=== PATIENT | male | born 1985 | race Caucasian/White ===

== ENCOUNTER 2019-01-28 07:41 | Day surgery (SDC) | payer OTHER ==
[2019-01-28] MEDS ORDERED: LACTATED RINGERS 1,000 ML IV ONE ×2 (07:48→09:51)
[2019-01-28] MEDS ORDERED: CEFAZOLIN SODIUM IN 0.9 % NACL 2 GM/100 ML BAG IV ONE (07:53)
--- NOTE | 2019-01-28 08:34 | ANESTHESIA ---
Pre-Anesthesia VS, & Labs - Diagnosis right acl and meniscus tear - Procedure right ant cruciate ligament repair, meniscal repair Vital Signs: Temp Pulse Resp BP Pulse Ox 36.4 C L 67 18 141/98 H 100 01/28/19 07:59 01/28/19 07:59 01/28/19 07:59 01/28/19 07:59 01/28/19 07:59 Height 6 ft 0.83 in Weight (kg) 97 kg - NPO >8 hours Home Medications and Allergies Home Medications: Ambulatory Orders Acetaminophen [Tylenol] 650 mg PO Q6H PRN 01/18/19 Multivitamin [One Daily Multivitamin] 1 each PO DAILY 01/18/19 Acetaminophen [Tylenol] 650 mg PO Q6H PRN 01/18/19 Multivitamin [One Daily Multivitamin] 1 each PO DAILY 01/18/19 Allergies/Adverse Reactions: Allergies Allergy/AdvReac Type Severity Reaction Status Date / Time No Known Drug Allergies Allergy Verified 01/18/19 10:36 Anes History & Medical History - Anesthetic History Anesthesia Complications: reports: No previous complications Family history of Anesthesia Complications: Denies Family history of Malignant Hyperthermia: Denies - Medical History Cardiovascular: reports: None Pulmonary: reports: None Gastrointestinal: reports: None Urinary: reports: None Musculoskeletal: reports: Other Endocrine/Autoimmune: reports: None Skin: reports: None - Surgical History Eyes Ears Nose Throat (EENT): Other Exam General: Alert, Oriented x3, Cooperative, No acute distress Dental: Other (crowns) Mouth Openin Fingerbreadth Neck Mobility: Normal Mallampati classification: I Thyromental Distance: greater than 6 cm Respiratory: Lungs clear, Normal breath sounds, No respiratory distress, No accessory muscle use Cardiovascular: Regular rate, Normal S1, Normal S2, No murmurs Plan Anesthesia Type: General Consent for Procedure(s) Verified and Reviewed: Yes Code Status: Attempt Resuscitation ASA classification: 1-Healthy patient Is this case an emergency?: No
[2019-01-28] MEDS ORDERED: LIDOCAINE-MPF 2% 5 ML VIAL IM ONE (09:00)
[2019-01-28] MEDS ORDERED: fentaNYL 100 MCG/2 ML VIAL IVP ONE (09:00)
[2019-01-28] MEDS ORDERED: MIDAZOLAM 2 MG/2 ML VIAL IVP ONE (09:00)
[2019-01-28] MEDS ORDERED: PROPOFOL 200 MG/20 ML VIAL IVP ONE (09:00)
[2019-01-28 09:53] VITALS: BP 133/94
--- NOTE | 2019-01-28 10:28 | OPERATIVE REPORT ---
Operative Report - Other Other Information/Narrative: Date of Surgery: 28 January 2019 Pre-Op Diagnosis: Right anterior cruciate ligament tear Right medial meniscus tear Right lateral meniscus tear Possible right posterior lateral corner injury Procedure: Examination under anesthesia Postop Diagnosis: Right anterior cruciate ligament tear Right medial meniscus tear Right lateral meniscus tear Right posterior lateral corner injury Primary Surgeon: Kurt Cruz Secondary Surgeon: Jaya Peñaloza Complications: None Tourniquet Time: None EBL: None Implants: None Postoperative Protocol: Continue preoperative rehabilitation with quad strengthening and range of motion improvement. Indication For Surgery: 33-year-old male injured his knee when he jumped off of a 3 foot tall piece of playground equipment. He reports numbness of the leg for a couple days afterwards that resolved. 6 weeks later he ended up getting an MRI showing ACL tear, partial LCL tear, popliteus tendon injury, medial meniscus injury, and lateral meniscus injury. He underwent adequate rehabilitation to restore range of motion and quadricep strength prior to surgery. The surgical plan was to perform an examination under anesthesia and determine whether the posterolateral corner required reconstruction or not. If the posterior lateral corner did not require reconstruction then the ACL reconstruction will be performed today with meniscus treatment as indicated. If the posterior lateral corner required reconstruction the patient would be awakened and care would be arranged by an orthopedic sports surgeon. The risks, benefits, and alternatives were discussed. Risks include pain, bleeding, infection, damage to nearby s tructures, numbness, lack of symptom relief, implant complications, nonunion, need for further surgery, DVT, PE, stroke, and . Written consent was obtained. Procedure in Detail: The patient was met in the pre-operative hold area on the day of the procedure. The operative extremity was signed and questions were answered. The patient was brought to the operating room and a general anestheti c was administered. Supine position was used and all bony prominences were padded. Anesthesia was given until the patient was nonresponsive. With assistance I then performed an examination under anesthesia. Range of motion was full. ACL showed a 2B Janine, and a grossly positive pivot shift. The knee was stable to valgus stressing at 0 and 30 degrees. Dial testing at 30 degrees revealed 30 degrees increased external rotation of the right knee when compared to the left knee. Dial testing at 90 degrees of knee flexion revealed 15 degrees increased external rotation of the right knee when compared to the left knee. When externally rotating the tibia the posterior lateral portion of the tibia moved further posterior in the anteromedial portion did did not move further anterior. Fluoroscopy was brought in and varus stress x-rays of the knees were done at 0 and 30 degrees. The right knee gapped a couple millimeters more than the left knee on varus stress testing with the knee bent to 30 degrees. Based on this information I believe a posterior lateral corner reconstruction should be performed. The patient was therefore awakened and transferred to recovery. I will arrange further treatment with an orthopedic sports surgeon.
--- NOTE | 2019-01-28 11:25 | XRAY Report ---
Reason: RIGHT KNEE MANIPULATION WITH LEFT KNEE COMPARISON Procedure Date: 01/28/2019 Accession Number: [id number] / [id number] Procedure: XR - Knee 2 View BILAT CPT Code: FULL RESULT: EXAM: FLUOROSCOPIC GUIDANCE EXAM DATE: 01/28/2019 10:04 AM. CLINICAL HISTORY: Right knee manipulation with left knee comparison. COMPARISON: OR C-ARM PROCEDURE 01/28/2019 9:32 AM. FINDINGS: A total of 9 AP view images of the knee joint are submitted, 2 of which are off the left side, no significant findings. IMPRESSION: Fluoroscopic guidance provided for right knee manipulation under fluoroscopy. Total fluoroscopy time: 0 seconds with a dose area product of 57.18 mcGym2. Number of images: 9. RADIA
--- NOTE | 2019-01-28 11:25 | XRAY Report ---
Reason: RIGHT KNEE MANIPULATION Procedure Date: 01/28/2019 Accession Number: [id number] / [id number] Procedure: FL - OR C-Arm Procedure CPT Code: FULL RESULT: EXAM: FLUOROSCOPIC GUIDANCE EXAM DATE: 01/28/2019 10:04 AM. CLINICAL HISTORY: Right knee manipulation with left knee comparison. COMPARISON: OR C-ARM PROCEDURE 01/28/2019 9:32 AM. FINDINGS: A total of 9 AP view images of the knee joint are submitted, 2 of which are off the left side, no significant findings. IMPRESSION: Fluoroscopic guidance provided for right knee manipulation under fluoroscopy. Total fluoroscopy time: 0 seconds with a dose area product of 57.18 mcGym2. Number of images: 9. RADIA
== END 2019-01-28 07:42 | disposition home or self-care (01) ==
LOC: SDS 07:41
PROVIDERS: ATTEND Orthopaedic Surgery
PROC: 0SSCXZZ Reposition Right Knee Joint, External Approach (ICD-10-PCS; principal; 2019-01-28 08:45)
DX: S83.511A Sprain of anterior cruciate ligament of right knee, initial encounter (principal); S83.241A Other tear of medial meniscus, current injury, right knee, initial encounter; S83.281A Other tear of lateral meniscus, current injury, right knee, initial encounter; S89.81XA Other specified injuries of right lower leg, initial encounter; Z87.891 Personal history of nicotine dependence
CPT/HCPCS: 27570; 73565; J7120

== ENCOUNTER 2019-03-17 08:17 | Emergency (ER) | payer OTHER ==
[2019-03-17 08:38] VITALS: BP 144/92
[2019-03-17] MEDS ORDERED: DEXAMETHASONE 10 MG/ML VIAL PO STA (09:05)
[2019-03-17] MEDS ORDERED: CHERRY SYRUP 10 ML UDC PO ONE (09:05)
[2019-03-17] MEDS ORDERED: ACETAMINOPHEN 325 MG TABLET PO STA (09:05)
--- NOTE | 2019-03-17 09:35 | ED Physician Documentation ---
PD HPI LOWER EXT INJURY - Stated complaint Stated Complaint: L FOOT PX - Chief complaint Chief Complaint: Ext Problem - History obtained from History obtained from: Patient - History of Present Illness PD HPI LOW EXT INJURY LOCATION: Left, Foot Type of injury: Twist Timing - onset: Today Timing - details: Abrupt onset, Still present Worsened by: Moving, Palpating Associated symptoms: Swelling. No: Weakness, Numbness Similar symptoms before: Has not had sx before Review of Systems Skin: denies: Abrasion (s), Laceration (s) Neurologic: denies: Numbness PD PAST MEDICAL HISTORY - Past Medical History Cardiovascular: None Respiratory: None Endocrine/Autoimmune: None GI: None : None HEENT: None Psych: None Musculoskeletal: Other Derm: None - Past Surgical History Ortho: Other HEENT: Other - Present Medications Home Medications: Ambulatory Orders Medication Instructions Recorded Confirmed Acetaminophen [Tylenol] 650 mg PO Q6H PRN 01/18/19 01/28/19 Multivitamin [One Daily 1 each PO DAILY 01/18/19 01/28/19 Multivitamin] Hydrocodone/Acetaminophen [[place] 1 each PO Q6H PRN #20 tablet 03/17/19 5-325 Tablet] dexAMETHasone [Decadron] 4 mg PO DAILY #5 tablet 03/17/19 - Allergies Allergies/Adverse Reactions: Allergies Allergy/AdvReac Type Severity Reaction Status Date / Time No Known Drug Allergies Allergy Verified 03/17/19 08:38 - Social History Does the pt smoke?: No Smoking Status: Never smoker PD ED PE NORMAL - Vitals Vital signs reviewed: Yes - General General: Alert and oriented X 3, No acute distress, Well developed/nourished - Derm Derm: Normal color, Warm and dry - Extremities Extremities: Other (left foot with mid proximal foot tenderness and swelling. Normal sensation in toes. Normal pulses. No calf tenderness. ) - Neuro Neuro: Alert and oriented X 3, No motor deficit, No sensory deficit Results - Vitals Vitals: Oxygen O2 Source Room air - Rads (name of study) left foot Radiology: Prelim report reviewed (no fractures), See rad report PD MEDICAL DECISION MAKING - ED course Complexity details: reviewed results, considered differential, d/w patient Departure - Departure Disposition: 01 Home, Self Care Clinical Impression: Sprain of left foot Qualifiers: Encounter type: initial encounter Qualified Code(s): S93.602A - Unspecified sprain of left foot, initial encounter Condition: Stable Record reviewed to determine appropriate education?: Yes Instructions: ED Sprain Foot Follow-Up: FUENTES JARAMILLO MD [Primary Care Provider] - Prescriptions: dexAMETHasone [Decadron] 4 mg PO DAILY #5 tablet Hydrocodone/Acetaminophen [[place] 5-325 Tablet] 1 each PO Q6H PRN #20 tablet PRN Reason: Pain Comments: Your x-ray appears normal. Presume this is some ligament and muscles strain through the foot. Given the marked pain along with some redness, also consider an inflammatory reaction such as gout. The common treatment for these is anti-inflammatories. Continue your new naproxen 2-3 times a day. To that add Decadron steroid anti-inflammatory. Supplement with Tylenol or hydrocodone as needed for pain. Try the firm soled shoe and see if that dissipates the pressure in such a way that it does not hurt as much to walk on it. Follow-up with Ortho next week. Discharge Date/Time: 03/17/19 09:48
--- NOTE | 2019-03-17 09:37 | XRAY Report ---
Reason: foot pain past few days Procedure Date: 03/17/2019 Accession Number: [id number] / [id number] Procedure: XR - Foot 3 View LT CPT Code: FULL RESULT: EXAM: LEFT FOOT RADIOGRAPHY EXAM DATE: 03/17/2019 09:22 AM. CLINICAL HISTORY: Foot pain past few days. COMPARISON: None. TECHNIQUE: 3 views. FINDINGS: Bones: No fractures or bone lesions. Joints: Unremarkable. Soft Tissues: Unremarkable. IMPRESSION: 1. No acute osseous abnormality. RADIA
== END 2019-03-17 09:48 | disposition home or self-care (01) ==
LOC: ED 08:17
DX: S93.602A Unspecified sprain of left foot, initial encounter (principal); X50.1XXA Overexertion from prolonged static or awkward postures, initial encounter
CPT/HCPCS: 73630; 99283; A9270

== ENCOUNTER 2019-09-04 11:29 | Emergency (ER) | payer OTHER ==
[2019-09-04] MEDS ORDERED: KETOROLAC 60 MG/2 ML VIAL IM STA (14:51)
[2019-09-04] MEDS ORDERED: DEXAMETHASONE 10 MG/ML VIAL PO STA (14:51)
[2019-09-04] MEDS ORDERED: CHERRY SYRUP 10 ML UDC PO ONE (14:51)
--- NOTE | 2019-09-04 14:55 | ED Physician Documentation ---
PD HPI BACK PAIN - Stated complaint Stated Complaint: LOW BACK PX - Chief complaint Chief Complaint: Back Pain - History obtained from History obtained from: Patient - History of Present Illness Timing - onset: How many days ago (3) Timing - duration: Days (3) Timing - details: Abrupt onset, Still present Location: Lower, Right Quality: Pain, Spasm, Sharp, Similar to prior episodes Associated symptoms: No: Fever, Weakness, Numbness, Incontinent of urine, Unable to urinate, Hematuria, Incontinent of stool Improves with: Rest, Ice, Position Worsened by: Movement, Lifting, Twisting Contributing factors: Other (Weightlifting) Similar symptoms before: Diagnosis (Lumbar strain) Recently seen: Not recently seen - Additional information Additional information: 34-year-old male with a chronic low back injury was doing his workout at the gym 3 days ago when he felt that he strained his lower back. He has since had pain in the lower back or usually has this. It is not radiating down into his legs. He is not having any saddle anesthesia or change in his bowel or bladder. Review of Systems Constitutional: denies: Fever Eyes: denies: Decreased vision Ears: denies: Ear pain Nose: denies: Congestion Respiratory: denies: Cough GI: denies: Nausea, Vomiting : denies: Dysuria PD PAST MEDICAL HISTORY - Past Medical History Cardiovascular: None Respiratory: None Endocrine/Autoimmune: None GI: None : None HEENT: None Psych: None Musculoskeletal: Other Derm: None - Past Surgical History Past Surgical History: Yes Ortho: Other HEENT: Other - Present Medications Home Medications: Ambulatory Orders Medication Instructions Recorded Confirmed Acetaminophen [Tylenol] 650 mg PO Q6H PRN 01/18/19 01/28/19 Multivitamin [One Daily 1 each PO DAILY 01/18/19 01/28/19 Multivitamin] Hydrocodone/Acetaminophen [[place] 1 each PO Q6H PRN #20 tablet 03/17/19 5-325 Tablet] dexAMETHasone [Decadron] 4 mg PO DAILY #5 tablet 03/17/19 Cyclobenzaprine [Flexeril] 10 mg PO TID PRN #20 tablet 09/04/19 Hydrocodone/Acetaminophen 1 - 2 each PO Q6H PRN #14 tablet 09/04/19 [Hydrocodon-Acetaminophen 5-325] - Allergies Allergies/Adverse Reactions: Allergies Allergy/AdvReac Type Severity Reaction Status Date / Time No Known Drug Allergies Allergy Verified 09/04/19 12:16 - Social History Does the pt smoke?: No Smoking Status: Never smoker Does the pt drink ETOH?: Yes Does the pt have substance abuse?: No PD ED PE NORMAL - Vitals Vital signs reviewed: Yes (Hypertensive) - General General: No acute distress, Well developed/nourished, Other (Patient looks uncomfortable sitting in a cockeyed position.) - HEENT HEENT: Atraumatic, PERRL, EOMI - Neck Neck: Supple, no meningeal sign - Respiratory Respiratory: No respiratory distress - Back Back: No CVA TTP, No spinal TTP, Other (There is tenderness to the paraspinous muscles in the lower lumbar spine on the right side near the sciatic notch.) - Derm Derm: Normal color, Warm and dry, No rash - Extremities Extremities: No deformity, No edema - Neuro Neuro: Alert and oriented X 3, foxer 2-12 intact, No motor deficit, No sensory deficit, Normal speech Eye Opening: Spontaneous Motor: Obeys Commands Verbal: Oriented GCS Score: 15 - Psych Psych: Normal mood, Normal affect Results - Vitals Vitals: Vital Signs - 24 hr 09/04/19 09/04/19 12:16 14:59 Temperature 36.5 C Heart Rate 86 71 Respiratory 14 18 Rate Blood Pressure 134/100 H 134/86 H O2 Saturation 100 99 Oxygen O2 Source Room air PD MEDICAL DECISION MAKING - ED course Complexity details: reviewed results, re-evaluated patient, considered differential, d/w patient ED course: 34-year-old male with strained himself weightlifting has pain in his right lower back similar to what is had previously. He is administered dexamethasone 10 mg orally and 60 mg of Toradol IM. We will place him on a short course of pain medication and muscle relaxant. Departure - Departure Disposition: 01 Home, Self Care Clinical Impression: Low back sprain Qualifiers: Encounter type: initial encounter Qualified Code(s): S33.5XXA - Sprain of ligaments of lumbar spine, initial encounter Condition: Stable Instructions: ED Low Back Pain Injury Follow-Up: [facility] [Provider Group] Prescriptions: Cyclobenzaprine [Flexeril] 10 mg PO TID PRN #20 tablet PRN Reason: Spasms Hydrocodone/Acetaminophen [Hydrocodon-Acetaminophen 5-325] 1 - 2 each PO Q6H PRN #14 tablet PRN Reason: pain
[2019-09-04 14:59] VITALS: BP 134/86
== END 2019-09-04 15:33 | disposition home or self-care (01) ==
LOC: ED 11:29
DX: S33.5XXA Sprain of ligaments of lumbar spine, initial encounter (principal); X50.0XXA Overexertion from strenuous movement or load, initial encounter; Y93.B9 Activity, other involving muscle strengthening exercises; Y92.39 Other specified sports and athletic area as the place of occurrence of the external cause
CPT/HCPCS: 96372; 99283; 99284; A9270

== ENCOUNTER 2020-03-17 11:39 | Emergency (ER) | payer OTHER ==
--- NOTE | 2020-03-17 12:16 | ED Physician Documentation ---
PD HPI BACK PAIN - Stated complaint Stated Complaint: BACK PAIN - Chief complaint Chief Complaint: Back Pain - History obtained from History obtained from: Patient - History of Present Illness Timing - onset: Yesterday Timing - details: Abrupt onset, Still present Location: Lower, Right Quality: Pain, Spasm, Aching Associated symptoms: Other (no radiation of the pain to legs.). No: Fever, Weakness, Numbness, Incontinent of urine Improves with: Rest. No: Meds (tried Ibuprofen with mild improvement) Worsened by: Movement Contributing factors: Lifting (he says his child tipped over the grill onto himself, so patient ran quickly to him and lifted the grill off him and them picked him up to hug him. Child was not injured by the incident. Patient felt onset of pain, and has increased pain and stiffness today. No radiation of pain nor any neuro sxs.) Similar symptoms before: Diagnosis (lumbar strain and some herniated discs, treated with PT and meds several years ago. Occasional LBP with activity since. No recent complaints and was doing well with regular exercises.) Recently seen: No: Surgery Review of Systems Constitutional: denies: Fever, Chills Nose: denies: Rhinorrhea / runny nose, Congestion Throat: denies: Sore throat Cardiac: denies: Chest pain / pressure Respiratory: denies: Cough GI: denies: Abdominal Pain, Nausea, Vomiting : denies: Incontinent Neurologic: denies: Focal weakness, Numbness PD PAST MEDICAL HISTORY - Past Medical History Cardiovascular: None Respiratory: None Endocrine/Autoimmune: None GI: None : None HEENT: None Psych: None Musculoskeletal: Other Derm: None - Past Surgical History Past Surgical History: Yes Ortho: Other HEENT: Other - Present Medications Home Medications: Ambulatory Orders Medication Instructions Recorded Confirmed Acetaminophen [Tylenol] 650 mg PO Q6H PRN 01/18/19 01/28/19 Multivitamin [One Daily 1 each PO DAILY 01/18/19 01/28/19 Multivitamin] Hydrocodone/Acetaminophen [[place] 1 each PO Q6H PRN #20 tablet 03/17/19 5-325 Tablet] dexAMETHasone [Decadron] 4 mg PO DAILY #5 tablet 03/17/19 Cyclobenzaprine [Flexeril] 10 mg PO TID PRN #20 tablet 09/04/19 Hydrocodone/Acetaminophen 1 - 2 each PO Q6H PRN #14 tablet 09/04/19 [Hydrocodon-Acetaminophen 5-325] Hydrocodone/Acetaminophen [[place] 1 each PO Q6H PRN #20 tablet 03/17/20 5-325 Tablet] Ibuprofen [Motrin] 600 mg PO TID PRN #25 tab 03/17/20 Tizanidine HCl 4 mg PO TID PRN #25 capsule 03/17/20 - Allergies Allergies/Adverse Reactions: Allergies Allergy/AdvReac Type Severity Reaction Status Date / Time No Known Drug Allergies Allergy Verified 09/04/19 12:16 - Social History Does the pt smoke?: No Smoking Status: Never smoker Does the pt drink ETOH?: Yes Does the pt have substance abuse?: No PD ED PE NORMAL - Vitals Vital signs reviewed: Yes - General General: Alert and oriented X 3, Well developed/nourished, Other (appears uncomfortable with guarded ROM of the low back, and slight flexion forward/to left as most comfortable. ) - Back Back: No CVA TTP, No spinal TTP, Other (tender in right lower paralumbar muscles without deformity. Not tender midline to palpation nor percussion. ) - Derm Derm: Normal color, Warm and dry - Extremities Extremities: No tenderness to palpate, Normal ROM s pain, No edema, No calf tenderness / cord - Neuro Neuro: Alert and oriented X 3, No motor deficit, No sensory deficit Results - Vitals Vitals: Vital Signs - 24 hr 03/17/20 03/17/20 12:04 13:46 Temperature 37 C Heart Rate 94 74 Respiratory 20 16 Rate Blood Pressure 145/107 H 124/89 H O2 Saturation 99 Oxygen O2 Source Room air PD MEDICAL DECISION MAKING - ED course Complexity details: considered differential (low back pain without red flags. ), d/w patient Departure - Departure Disposition: 01 Home, Self Care Clinical Impression: Low back strain Qualifiers: Encounter type: initial encounter Qualified Code(s): S39.012A - Strain of muscle, fascia and tendon of lower back, initial encounter Condition: Stable Record reviewed to determine appropriate education?: Yes Instructions: ED Sprain Strain Lumbar Follow-Up: [facility] [Provider Group] Prescriptions: Ibuprofen [Motrin] 600 mg PO TID PRN #25 tab PRN Reason: Pain Hydrocodone/Acetaminophen [[place] 5-325 Tablet] 1 each PO Q6H PRN #20 tablet PRN Reason: Pain Tizanidine HCl 4 mg PO TID PRN #25 capsule PRN Reason: Spasms Comments: Heat and gentle stretching for the low back. No vigorous activity or heavy lifting or repetitive bending for several days. Follow-up next week with your primary care if not improved by that time. Anti-inflammatory such as ibuprofen 3 times a day with food for the next week. To that add tizanidine for muscle spasms 4 times a day as needed and Tylenol or hydrocodone if needed for worse pain. Recheck if not improving well over the next several days and return if worsening or you develop neurologic symptoms in the legs such as numbness weakness or bowel or bladder dysfunction. Discharge Date/Time: 03/17/20 13:46
[2020-03-17] MEDS ORDERED: CHERRY SYRUP 10 ML UDC PO ONE (12:50)
[2020-03-17] MEDS ORDERED: methocarbamoL 500 MG TABLET PO STA (12:50)
[2020-03-17] MEDS ORDERED: DEXAMETHASONE 10 MG/ML VIAL PO STA (12:50)
[2020-03-17] MEDS ORDERED: ACETAMINOPHEN 325 MG TABLET PO STA (12:50)
[2020-03-17] MEDS ORDERED: KETOROLAC 30 MG/ML VIAL IM STA (12:50)
[2020-03-17 13:46] VITALS: BP 124/89
== END 2020-03-17 13:46 | disposition home or self-care (01) ==
LOC: ED 11:39
DX: S39.012A Strain of muscle, fascia and tendon of lower back, initial encounter (principal); X50.0XXA Overexertion from strenuous movement or load, initial encounter; Y93.89 Activity, other specified
CPT/HCPCS: 96372; 99283; 99284; A9270

== ENCOUNTER 2021-02-04 09:22 | Emergency (ER) | payer OTHER ==
[2021-02-04 09:55] VITALS: BP 159/111
--- NOTE | 2021-02-04 10:45 | ED Physician Documentation ---
History of Present Illness - Stated complaint Stated Complaint: BACK PX - Chief complaint Chief Complaint: Back Pain - History obtained from History obtained from: Patient - History of Present Illness Pain level max: 8 Pain level now: 8 - Additonal information Additional information: Patient is a 35-year-old male with chronic back pain who presents to the emergency department for worsening low back pain over the past several days. States he slipped and fell in his garage, caught himself on his boat and has had increasing pain since that time. No nausea or vomiting. No numbness or tingling. Worse with movement, better with rest. No loss of bowel or bladder control. No IV drug use. No fevers. Review of Systems Ten Systems: 10 systems reviewed and negative Constitutional: denies: Fever, Chills Nose: denies: Rhinorrhea / runny nose, Congestion Throat: denies: Sore throat Cardiac: denies: Chest pain / pressure Respiratory: denies: Dyspnea, Cough GI: denies: Vomiting, Diarrhea Skin: denies: Rash Musculoskeletal: denies: Neck pain Neurologic: denies: Focal weakness, Numbness, Headache PD PAST MEDICAL HISTORY - Past Medical History Cardiovascular: None Respiratory: None Neuro: None Endocrine/Autoimmune: None GI: None : None HEENT: None Psych: None Musculoskeletal: Other Derm: None - Past Surgical History Past Surgical History: Yes Ortho: Other HEENT: Other - Present Medications Home Medications: Ambulatory Orders Medication Instructions Recorded Confirmed Acetaminophen [Tylenol] 650 mg PO Q6H PRN 01/18/19 01/28/19 Multivitamin [One Daily 1 each PO DAILY 01/18/19 01/28/19 Multivitamin] Hydrocodone/Acetaminophen [[place] 1 each PO Q6H PRN #20 tablet 03/17/19 5-325 Tablet] dexAMETHasone [Decadron] 4 mg PO DAILY #5 tablet 03/17/19 Cyclobenzaprine [Flexeril] 10 mg PO TID PRN #20 tablet 09/04/19 Hydrocodone/Acetaminophen 1 - 2 each PO Q6H PRN #14 tablet 09/04/19 [Hydrocodon-Acetaminophen 5-325] Hydrocodone/Acetaminophen [[place] 1 each PO Q6H PRN #20 tablet 03/17/20 5-325 Tablet] Ibuprofen [Motrin] 600 mg PO TID PRN #25 tab 03/17/20 Tizanidine HCl 4 mg PO TID PRN #25 capsule 03/17/20 HYDROcod/ACETAM 5/325 [[place] 5/325] 1 - 2 ea PO Q6H PRN #14 tablet 02/04/21 methocarbamoL [Robaxin] 500 mg PO Q6H PRN #20 tablet 02/04/21 - Allergies Allergies/Adverse Reactions: Allergies Allergy/AdvReac Type Severity Reaction Status Date / Time No Known Drug Allergies Allergy Verified 02/04/21 09:55 - Social History Does the pt smoke?: No Smoking Status: Never smoker Does the pt drink ETOH?: Yes Does the pt have substance abuse?: No PD ED PE NORMAL - Vitals Vital signs reviewed: Yes - General General: Alert and oriented X 3, No acute distress, Well developed/nourished - HEENT HEENT: Moist mucous membranes - Neck Neck: Supple, no meningeal sign - Cardiac Cardiac: RRR, Strong equal pulses - Respiratory Respiratory: No respiratory distress, Clear bilaterally - Abdomen Abdomen: Soft, Non tender, Non distended - Back Back: No spinal TTP (Midline tenderness to palpation or percussion. Mild spasm low lumbar, right. No step-off or deformity) - Derm Derm: Warm and dry - Extremities Extremities: Normal ROM s pain, Other (Normal bilateral lower extremity patellar and ankle jerk reflexes. Normal great toe extension bilaterally. no saddle anesthesia) - Neuro Neuro: Alert and oriented X 3, No motor deficit, No sensory deficit - Psych Psych: Normal mood, Normal affect Results - Vitals Vitals: Vital Signs - 24 hr 02/04/21 09:48 Temperature 36.3 C L Heart Rate 88 Respiratory 16 Rate Blood Pressure 159/111 H O2 Saturation 99 Oxygen O2 Source Room air PD MEDICAL DECISION MAKING - ED course Complexity details: reviewed old records, considered differential (No cauda equina, no spinal epidural abscess, no fracture, no aortic dissection or evidence of aneursym rupture), d/w patient ED course: 35-year-old male with chronic low back pain. Worsened over the past [address] on pain medication for home and have him follow-up with his doctor for referral to a phone specialist. Patient is well-appearing, nontoxic. Afebrile. Ambulating well. No evidence of cauda equina, epidural abscess or fracture. No indication for emergent imaging. Patient counseled regarding signs and symptoms for which I believe and urgent re-evaluation would be necessary. Patient with good understanding of and agreement to plan and is comfortable going home at this time This document was made in part using voice recognition software. While efforts are made to proofread this document, sound alike and grammatical errors may occur. Departure - Departure Disposition: 01 Home, Self Care Clinical Impression: Low back strain Qualifiers: Encounter type: initial encounter Qualified Code(s): S39.012A - Strain of muscle, fascia and tendon of lower back, initial encounter Condition: Good Instructions: ED Sprain Strain Lumbar Follow-Up: [facility] [Provider Group] - Within 1 week Prescriptions: HYDROcod/ACETAM 5/325 [[place] 5/325] 1 - 2 ea PO Q6H PRN #14 tablet PRN Reason: Pain methocarbamoL [Robaxin] 500 mg PO Q6H PRN #20 tablet PRN Reason: muscle spasm Comments: Follow-up with your doctor for further care. You would likely benefit from a referral to a phone specialist and likely repeat MRI as it has been over 5 years since your last MRI and you have never seen a phone specialist. Your episodes have also been increasing in frequency. Use the medications as prescribed. I am prescribing a short course of narcotic pain medication for you. These are potentially dangerous and addictive medications that should be used carefully. These medications may constipate you. Take an wbjo-oht-sphxioj stool softener (docusate) twice daily with plenty of water while taking these medications. If you go 24 hours without a bowel movement, take [id number] miralax, per package instructions. Do not drink or drive while taking these medications. If you received narcotic or sedating medications while in the emergency department, do not drive for 24 hours. Store this medication in a safe, secure place and out of reach of children. It is a violation of federal law to give or sell this medication to another person or to use in a manner other than prescribed. The ED will not refill narcotic prescriptions, including prescriptions lost or stolen. To dispose of unwanted medications: 1. [facility] [address] in [place] has a medication drop box. They accept prescription medications (in pill form) Friday through Friday 9:00 a.m. to 5:00 p.m. 2. The [facility] [employer] accepts prescription medications (in pill form only) for disposal year round. Call for more information. 3. Contact the [facility] for the next [facility] sponsored prescription drug collection event. , [phone], or [phone]; Discharge Date/Time: 02/04/21 11:02
[2021-02-04] MEDS ORDERED: KETOROLAC 60 MG/2 ML VIAL IM STA (11:01)
== END 2021-02-04 11:02 | disposition home or self-care (01) ==
LOC: ED 09:22
DX: S39.012A Strain of muscle, fascia and tendon of lower back, initial encounter (principal); W01.0XXA Fall on same level from slipping, tripping and stumbling without subsequent striking against object, initial encounter; Y92.008 Other place in unspecified non-institutional (private) residence as the place of occurrence of the external cause; M54.5 Low back pain; G89.29 Other chronic pain
CPT/HCPCS: 99281; 99284

== ENCOUNTER 2021-05-14 02:06 | Emergency (ER) | payer OTHER ==
[2021-05-14] MEDS ORDERED: KETOROLAC 60 MG/2 ML VIAL IM STA (02:34)
--- NOTE | 2021-05-14 02:41 | ED Physician Documentation ---
PD HPI CHEST PAIN - Stated complaint Stated Complaint: CHEST PX/SOA/R SIDE PX - Chief complaint Chief Complaint: Cardiac - History obtained from History obtained from: Patient - Additional information Additional information: Patient comes to the emergency department with chief complaint of right-sided pain that is worse with deep breath and laying down. No shortness of breath, but hurts to take a deep breath when he is supine, so patient states it gives him a sensation of short breath. No nausea or vomiting. No cough or fever. No history of DVT or PE. No family history of this. Patient used to be a smoker but quit 3+ years ago. No recent immobility, surgery, or long trip. No swelling in his legs or calf pain. Patient states he did workout 3 days ago, but he did legs. Patient denies blood in his urine or dysuria. No history of kidney stones. No history of gallstones. No abdominal pain. He states that pain is mostly over the inferior aspect of his lateral and posterior right rib cage. No other complaints at this time. Review of Systems Ten Systems: 10 systems reviewed and negative Constitutional: reports: Reviewed and negative Eyes: reports: Reviewed and negative Ears: reports: Reviewed and negative Nose: reports: Reviewed and negative Throat: reports: Reviewed and negative Cardiac: reports: Reviewed and negative Respiratory: reports: Reviewed and negative GI: reports: Reviewed and negative : reports: Reviewed and negative Skin: reports: Reviewed and negative Musculoskeletal: reports: Reviewed and negative Neurologic: reports: Reviewed and negative Psychiatric: reports: Reviewed and negative Endocrine: reports: Reviewed and negative Immunocompromised: reports: Reviewed and negative PD PAST MEDICAL HISTORY - Past Medical History Past Medical History: No Cardiovascular: None Respiratory: None Neuro: None Endocrine/Autoimmune: None GI: None : None HEENT: None Psych: None Musculoskeletal: Other Derm: None - Past Surgical History Past Surgical History: Yes Ortho: Other HEENT: Other - Present Medications Home Medications: Ambulatory Orders Medication Instructions Recorded Confirmed Azithromycin [Zithromax] 0 mg PO DAILY #6 tablet 05/14/21 Citalopram Hydrobromide [Celexa] 20 mg PO DAILY 05/14/21 05/14/21 HYDROcod/ACETAM 5/325 [[place] 5/325] 1 - 2 tablet PO Q6H PRN #14 tablet 05/14/21 - Allergies Allergies/Adverse Reactions: Allergies Allergy/AdvReac Type Severity Reaction Status Date / Time No Known Drug Allergies Allergy Verified 05/14/21 02:22 - Social History Does the pt smoke?: No Smoking Status: Never smoker Does the pt drink ETOH?: Yes Does the pt have substance abuse?: No - Immunizations Immunizations are current?: Yes - POLST Patient has POLST: No PD ED PE NORMAL - Vitals Vital signs reviewed: Yes - General General: Alert and oriented X 3, No acute distress, Well developed/nourished - HEENT HEENT: Atraumatic, PERRL, EOMI, Moist mucous membranes - Neck Neck: Supple, no meningeal sign - Cardiac Cardiac: RRR, No murmur, Strong equal pulses - Respiratory Respiratory: No respiratory distress, Clear bilaterally - Abdomen Abdomen: Soft, Non tender, Non distended - Back Back: Other (Mild right CVA tenderness, extending to lateral rib cage inferiorly..) - Derm Derm: Normal color, Warm and dry, No rash - Extremities Extremities: No deformity, No edema - Neuro Neuro: Alert and oriented X 3, 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, Normal speech - Psych Psych: Normal mood, Normal affect Results - Vitals Vitals: Vital Signs - 24 hr 05/14/21 05/14/21 05/14/21 02:10 02:47 03:54 Temperature 37.8 C 37.4 C Heart Rate 86 83 95 Respiratory 20 24 16 Rate Blood Pressure 132/88 H 128/78 117/69 O2 Saturation 97 98 97 05/14/21 05/14/21 05/14/21 04:26 05:30 05:55 Temperature 36.9 C 37.2 C Heart Rate 82 72 Respiratory 19 14 Rate Blood Pressure 125/70 126/88 H O2 Saturation 97 98 Oxygen O2 Source Room air - EKG (time done) 0208 Rate: Rate (enter#) (92) Rhythm: NSR [place]: Normal Intervals: Normal RI QRS: Normal Ischemia: Normal ST segments, Other (Borderline T wave abnormalities) Compare to prior EKG: Old EKG unavailable Computer interpretation: Agree with computer - Labs Labs: Laboratory Tests 05/14/21 02:50 Urine Color YELLOW Urine Clarity CLEAR Urine pH 6.5 Ur Specific [place] 1.020 Urine Protein NEGATIVE Urine Glucose (UA) NEGATIVE Urine Ketones TRACE Urine Occult Blood SMALL H Urine Nitrite NEGATIVE Urine Bilirubin NEGATIVE Urine Urobilinogen 1 (NORMAL) Ur Leukocyte Esterase NEGATIVE Urine RBC 0-5 Urine WBC 0-3 Ur Squamous Epith Cells RARE Squamous Urine Bacteria None Seen Ur Microscopic Review INDICATED Urine Culture Comments NOT INDICATED - Rads (name of study) CXR Radiology: EMP read indepedently, See rad report (neg) CT abd/pelvis Radiology: Prelim report reviewed, EMP read indepedently, See rad report (Peripheral increased attenuation in the right lower lobe. Pneumonia and pneumonitis are considerations; pulmonary infarct similar appearance) PD MEDICAL DECISION MAKING - ED course Complexity details: reviewed results, re-evaluated patient, considered differential, d/w patient ED course: Patient was given a dose of Toradol in the emergency department and worked up urinalysis, EKG, and chest x-ray initially. Patient's chest x-ray is unremarkable. EKG showed only borderline T wave abnormalities but otherwise normal. The patient's urinalysis showed a small amount of blood, and given the patient's right flank/rib pain, I did send him for a CT of the abdomen and pelvis to look for possible kidney stone. This was done and did not show a stone. However, it did show a small amount of inflammation at the base of the right lung, which radiologist stated could be consistent with pneumonia or pneumonitis. Radiologist did also make note that a similar appearance could be seen with a pulmonary infarct and that clinical correlation should be used. The patient had completely normal vital signs in the emergency department and absolutely no symptoms of a DVT whatsoever. Additionally, he had no risk factors for clot formation at all. The patient had had a mechanical sounding chest pain made worse by position and deep breaths, but this was not associated with any actual shortness of breath, but more a sense of needing to breathe shallowly to avoid a painful inspiration. I discussed all of this with the patient. I feel that he is extremely low probability for a PE. I am not sure if he has a small area of pneumonitis or viral pleurisy or a very small area of bacterial festering is caused a small pneumonia. I have treated him with antibiotics. We have discussed further work-up for DVT/PE, but given the abundance of negative symptoms, exam findings, and risk factors, is highly unlikely that this would yield anything. We have discussed symptoms of DVT and PE and the need to come in right away, should any of these arise. We have discussed the usual indications for return. Departure - Departure Disposition: 01 Home, Self Care Clinical Impression: Pneumonia Qualifiers: Pneumonia type: due to unspecified organism Laterality: right Lung location: lower lobe of lung Qualified Code(s): J18.9 - Pneumonia, unspecified organism Condition: Stable Instructions: ED Pneumonia Adult Prescriptions: HYDROcod/ACETAM 5/325 [[place] 5/325] 1 - 2 tablet PO Q6H PRN #14 tablet PRN Reason: Pain Azithromycin [Zithromax] 0 mg PO DAILY #6 tablet Comments: Your EKG and chest x-ray look good. Your urinalysis showed a small amount of blood in the urine, which prompted a CT scan of the abdomen and pelvis to look for a kidney stone. No stone was found, but you were found to have a small amount of inflammation of the very base of your right lung, which was read by the radiologist as having the appearance of pneumonia or another inflammation called pneumonitis, most commonly caused by virus or other chemical exposure. While this appearance less commonly is caused by a lack of blood flow to a small portion of the lung, secondary to a blood clot, this is much less likely, especially given that you have no symptoms or risk factors for blood clot. You have been started on antibiotics today. You should expect to see the symptoms clear up in the next several days. If you feel like symptoms are worsening or not getting better after this course of antibiotics, then please seek medical reevaluation. Your medication prescriptions have been electronically transmitted to [facility]. Forms: Activity restrictions Discharge Date/Time: 05/14/21 05:56
[2021-05-14 02:54] LABS: BILIRUBIN,URINE NEGATIVE (NEGATIVE); GLUCOSE, URINE (UA) NEGATIVE (NEGATIVE); KETONES,URINE (UA) TRACE mg/dL (NEGATIVE); LEUKOCYTE ESTERASE, URINE NEGATIVE (NEGATIVE); NITRITE,URINE NEGATIVE (NEGATIVE); OCCULT BLOOD,URINE SMALL (NEGATIVE); PH,URINE 6.5 PH (5.0-7.5); PROTEIN,URINE NEGATIVE (NEGATIVE); UROBILINOGEN,URINE 1 (NORMAL) E.U./dL (NORMAL)
[2021-05-14 02:56] LABS: CLARITY,URINE CLEAR (CLEAR)
[2021-05-14 03:05] LABS: BACTERIA,URINE None Seen /HPF (None Seen); RBC,URINE 0-5 /HPF (0-5); SQUAMOUS EPITHELIAL CELL,UR RARE Squamous (<= Few); WBC,URINE 0-3 /HPF (0-3)
[2021-05-14] MEDS ORDERED: LIDOCAINE 1% 2 ML VIAL MC ONE (04:56)
[2021-05-14] MEDS ORDERED: cefTRIAXone 1 GM VIAL IM STA (04:56)
[2021-05-14] MEDS ORDERED: AZITHROMYCIN 250 MG TABLET PO STA (04:56)
[2021-05-14 05:41] VITALS: BP 126/88
[2021-05-14] MEDS ORDERED: HYDROcod/ACET 5/325 Prepack 4 PO STA (05:44)
--- NOTE | 2021-05-14 07:40 | XRAY Report ---
PROCEDURE: Chest 1 View X-Ray INDICATIONS: chest pain TECHNIQUE: One view of the chest was acquired. COMPARISON: None available. FINDINGS: SUPPORT DEVICES: None. LUNGS/PLEURA: No focal consolidation, pleural effusion or space-occupying pneumothorax. MEDIASTINUM: The cardiomediastinal silhouette is within normal limits. BONES/SOFT TISSUES: No acute abnormality. Elevation of the right diaphragm is noted. IMPRESSION: 1.No acute cardiopulmonary abnormality. Concordant interpretation with preliminary report. Reviewed by: Vic Zhu MD on 05/14/2021 7:39 AM PDT Approved by: Vic Zhu MD on 05/14/2021 7:39 AM PDT Station ID: [id number]
--- NOTE | 2021-05-14 07:45 | CT Report ---
PROCEDURE: Abdomen/Pelvis WO INDICATIONS: Hematuria, right flank pain TECHNIQUE: Noncontrast 5 mm thick sections acquired from the diaphragms to the symphysis. 5 mm coronal and sagi ttal reformats were then performed. For radiation dose reduction, the following was used: automated exposure control, adjustment of mA and/or kV according to patient size. COMPARISON: None. FINDINGS: Inferior chest: Patchy airspace opacity in the right lower lobe, concerning for developing pneumonic infiltrate. Bibasilar streaky densities, compatible atelectasis. No cardiomegaly or pericardial effu todd. Gallbladder: Contracted but no appreciable gallbladder wall thickening or pericholecystic fluid. Biliary tree: No intra-or extrahepatic biliary ductal dilatation. Liver: The liver demonstrates normal appearance. Spleen: Normal size and morphology is seen. Pancreas: Normal morphology without masses or inflammatory changes. Adrenals: Normal size without masses. Kidneys: Normal size and morphology. No contour deforming solid masses or evidence of obstructive uro elizabeth. Vasculature: No evidence of aneurysm or other significant vascular pathology. Lymphatic system: No pathologic enlargement by size criteria. Bowel: No evidence of intestinal obstruction. Mild to moderate stool burden throughout the colon. Sig moid diverticulosis. Normal appendix. Peritoneum/Retroperitoneum: No free intraperitoneal gas or large collection. Urinary bladder: The urinary bladder is distended with a smooth thin wall. Pelvic organs: No significant abnormality. Bones/soft tissues: No significant abnormality. Minimal retrolisthesis at L4-5 and posterior disc bul ge. Moderate disc height loss at L4-S1 with vacuum phenomena. IMPRESSION: 1.Patchy airspace opacity in the posterior aspect of the right lower lobe, concerning for developing pneumonic infiltrate. 2.No acute intra-abdominal/pelvic abnormality. Concordant interpretation with the preliminary report. Reviewed by: Vic Zhu MD on 05/14/2021 7:44 AM PDT Approved by: Vic Zhu MD on 05/14/2021 7:44 AM PDT Station ID: [id number]
== END 2021-05-14 05:56 | disposition home or self-care (01) ==
LOC: ED 02:06
DX: J18.9 Pneumonia, unspecified organism (principal); Z87.891 Personal history of nicotine dependence
CPT/HCPCS: 71045; 74176; 81001; 93005; 96372; 99284; A9270; 81003; 87086

== ENCOUNTER 2021-11-16 10:09 | Emergency (ER) | payer OTHER ==
[2021-11-16 10:22] VITALS: BP 150/75
[2021-11-16] MEDS ORDERED: CHERRY SYRUP 10 ML UDC PO ONE (11:28)
[2021-11-16] MEDS ORDERED: KETOROLAC 60 MG/2 ML VIAL IM STA (11:28)
[2021-11-16] MEDS ORDERED: DEXAMETHASONE 10 MG/ML VIAL PO STA (11:28)
--- NOTE | 2021-11-16 11:31 | ED Physician Documentation ---
PD HPI BACK PAIN - Stated complaint Stated Complaint: LOW BACK PX - Chief complaint Chief Complaint: Back Pain - History obtained from History obtained from: Patient - History of Present Illness Timing - onset: How many days ago (2) Timing - duration: Days (2) Timing - details: Gradual onset, Still present Location: Lower, Right Quality: Pain, Spasm, Sharp, Similar to prior episodes Associated symptoms: No: Fever, Weakness, Numbness, Incontinent of urine, Unable to urinate, Hematuria, Incontinent of stool Improves with: Rest, Ice, Position, Meds Worsened by: Movement, Twisting, Palpation Contributing factors: Lifting, Twisting Similar symptoms before: Diagnosis (L3/4 disc bulge) Recently seen: Not recently seen - Additional information Additional information: Previously well 36-year-old male with a history of L3-4 disc bulge lifted a heavy box at his home 2 days ago felt a snap in his back and the day following began to develop worsening pain. Last night he was unable to sleep secondary to the pain and comes in today with pain with any movement and pain in his lower back similar to what is had previously. He has gone through physical therapy with this he has used pain medication a muscle relaxant with this and he has used ice and heat. Review of Systems Ears: denies: Ear pain Nose: denies: Congestion Throat: denies: Sore throat Respiratory: denies: Dyspnea, Cough GI: denies: Abdominal Pain, Nausea, Vomiting, Constipation, Diarrhea : denies: Dysuria Skin: denies: Rash Musculoskeletal: reports: Back pain. denies: Neck pain, Extremity pain Neurologic: denies: Generalized weakness, Focal weakness, Numbness PD PAST MEDICAL HISTORY - Past Medical History Past Medical History: Yes Cardiovascular: None Respiratory: None Neuro: None Endocrine/Autoimmune: None GI: None : None HEENT: None Psych: None Musculoskeletal: Other Derm: None Other Past Medical History: L3 L4 bulged disc - Past Surgical History Past Surgical History: Yes Ortho: Other HEENT: Other - Present Medications Home Medications: Ambulatory Orders Medication Instructions Recorded Confirmed Citalopram Hydrobromide [Celexa] 20 mg PO DAILY 05/14/21 05/14/21 Cyclobenzaprine [Flexeril] 10 mg PO TID PRN #20 tablet 11/16/21 HYDROcod/ACETAM 5/325 [[place] 5/325] 1 - 2 tablet PO Q6H PRN #14 tablet 11/16/21 - Allergies Allergies/Adverse Reactions: Allergies Allergy/AdvReac Type Severity Reaction Status Date / Time No Known Drug Allergies Allergy Verified 11/16/21 10:23 - Social History Does the pt smoke?: No Smoking Status: Never smoker Does the pt drink ETOH?: Yes Does the pt have substance abuse?: No - Immunizations Immunizations are current?: Yes - POLST Patient has POLST: No PD ED PE NORMAL - Vitals Vital signs reviewed: Yes (hypertensive mild ) - General General: Alert and oriented X 3, No acute distress, Well developed/nourished - HEENT HEENT: Atraumatic, PERRL, EOMI - Respiratory Respiratory: No respiratory distress - Back Back: No CVA TTP, No spinal TTP, Other (paraspinous muscle tenderness to the right lower lumbar paraspinous musles extending to the sciatic notch ) - Derm Derm: Normal color, Warm and dry, No rash - Neuro Neuro: Alert and oriented X 3, 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, No motor deficit, No sensory deficit, Normal speech Eye Opening: Spontaneous Motor: Obeys Commands Verbal: Oriented GCS Score: 15 - Psych Psych: Normal mood, Normal affect Results - Vitals Vitals: Vital Signs - 24 hr 11/16/21 10:13 Temperature 36.6 C Heart Rate 91 Respiratory 18 Rate Blood Pressure 150/75 H O2 Saturation 99 Oxygen O2 Source Room air PD MEDICAL DECISION MAKING - ED course Complexity details: considered differential, d/w patient ED course: 36-year-old male with known lumbar disc disease has had a excessive lift 2 days ago has pain and radiation of pain into his leg with certain movements consistent with sciatica and he is treated in the emerge department with dexamethasone and Toradol we will place him on a short course of pain medication muscle relaxant and have him follow-up with his primary care doctor for physical therapy. Departure - Departure Disposition: 01 Home, Self Care Clinical Impression: Sciatica Qualifiers: Laterality: right Qualified Code(s): M54.31 - Sciatica, right side Condition: Stable Instructions: ED Sciatica Follow-Up: [facility] [Provider Group] Prescriptions: Cyclobenzaprine [Flexeril] 10 mg PO TID PRN #20 tablet PRN Reason: Spasms HYDROcod/ACETAM 5/325 [[place] 5/325] 1 - 2 tablet PO Q6H PRN #14 tablet PRN Reason: Pain Comments: Toni today it looks like you have some sciatica and we have given you some dexamethasone and Toradol with the expectation of this will help a bit with the pain as you have had this previously you know that some physical therapy is likely warranted and a follow-up with your primary care doctor is recommended. I have E scribe some pain medication and muscle relaxant for temporary use to the [facility] in [place]. Discharge Date/Time: 11/16/21 11:52
== END 2021-11-16 11:52 | disposition home or self-care (01) ==
LOC: ED 10:09
DX: M54.31 Sciatica, right side (principal)
CPT/HCPCS: 96372; 99282; 99283; A9270

== ENCOUNTER 2022-03-12 03:56 | Emergency (ER) | payer OTHER ==
[2022-03-12 04:58] LABS: BASOPHILS % (AUTO) 0.5 %; EOSINOPHILS # (AUTO) 0.1 10^3/uL (0.0-0.7); HCT - HEMATOCRIT 41.5 % (42.0-52.0); HGB - HEMOGLOBIN 14.5 g/dL (14.0-18.0); LYMPHOCYTES # (AUTO) 2.4 10^3/uL (1.5-3.5); LYMPHOCYTES % (AUTO) 43.6 %; MEAN CORPUSCULAR HEMOGLOBIN 33.9 pg (27.0-31.0); MEAN CORPUSCULAR HGB CONC 34.9 g/dL (32.0-36.0); MEAN PLATELET VOLUME 10.4 fL (7.4-11.4); MONOCYTES # (AUTO) 0.6 10^3/uL (0.0-1.0); MONOCYTES % (AUTO) 10.1 %; NEUTROPHILS # (AUTO) 2.4 10^3/uL (1.5-6.6); NEUTROPHILS % (AUTO) 43.6 %; PLT - PLATELET COUNT 227 10^3/uL (130-450); RED BLOOD COUNT 4.28 10^6/uL (4.70-6.10); RED CELL DISTRIBUTION WIDTH 12.2 % (12.0-15.0); WHITE BLOOD COUNT 5.6 x10^3/uL (4.8-10.8)
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
[2022-03-12 05:23] LABS: ALBUMIN 4.4 g/dL (3.2-5.5); ALBUMIN/GLOBULIN RATIO 1.2 (1.0-2.2); BILIRUBIN,TOTAL 0.9 mg/dL (0.2-1.0); CALCIUM 9.7 mg/dL (8.5-10.3); CREATININE 0.9 mg/dL (0.6-1.2); POTASSIUM 3.4 mmol/L (3.5-5.0)
[2022-03-12] MEDS ORDERED: POTASSIUM CHLORIDE 20 MEQ TABLET PO STA (05:51)
[2022-03-12 05:52] LABS: B. PARAPERTUSSIS- RESP PCR PAN NOT DETECTED; B. PERTUSSIS- RESP PCR PANEL NOT DETECTED; C. PNEUMONIAE- RESP PCR PANEL NOT DETECTED; CORONAVIRUS 229E-RESP PCR NOT DETECTED; CORONAVIRUS HKU1-RESP PCR NOT DETECTED; CORONAVIRUS NL63-RESP PCR NOT DETECTED; CORONAVIRUS OC43-RESP PCR NOT DETECTED; HUMAN METAPNEUMOVIRUS NOT DETECTED; INFLUENZA A- RESP PCR PANEL NOT DETECTED; INFLUENZA B - RESP PCR PANEL NOT DETECTED; M. PNEUMONIAE- RESP PCR PANEL NOT DETECTED; PARAINFLUENZA VIRUS 1 NOT DETECTED; PARAINFLUENZA VIRUS 2 NOT DETECTED; PARAINFLUENZA VIRUS 3 NOT DETECTED; PARAINFLUENZA VIRUS 4 NOT DETECTED; RHINOVIRUS/ENTEROVIRUS NOT DETECTED; RSV- RESP PCR PANEL NOT DETECTED; SARS-CoV-2 -RESP PCR PANEL NOT DETECTED
[2022-03-12 05:54] VITALS: BP 141/99
--- NOTE | 2022-03-12 08:14 | CT Report ---
PROCEDURE: HEAD WO INDICATIONS: ALOC and incoordination yesterday TECHNIQUE: Noncontrast 4.5 mm thick angled axial sections acquired from the foramen magnum to the vertex. For r adiation dose reduction, the following was used: automated exposure control, adjustment of mA and/or kV according to patient size. COMPARISON: None. FINDINGS: Image quality: Excellent. CSF spaces: Basal cisterns are patent. No extra-axial fluid collections. Ventricles are normal in size and shape. Brain: No midline shift. No intracranial masses or hemorrhage. Najera-white matter interface is norm al. Skull and face: Calvarium and visualized facial bones are intact, without suspicious lesions. Sinuses: Visualized sinuses and mastoids are clear. IMPRESSION: 1. No CT evidence of acute intracranial process. 2. Final interpretation concordant with preliminary report. Reviewed by: Sridevi Hicks MD on 03/12/2022 8:12 AM PDT Approved by: Sridevi Hicks MD on 03/12/2022 8:12 AM PDT Station ID: [id number]
== END 2022-03-12 06:08 | disposition home or self-care (01) ==
LOC: ED 03:56
DX: R41.0 Disorientation, unspecified (principal); Z20.822 Contact with and (suspected) exposure to COVID-19
CPT/HCPCS: 36415; 70450; 80053; 83690; 85025; 87633; 99282; 99284; A9270

== ENCOUNTER 2022-06-18 11:50 | Emergency (ER) | payer OTHER ==
[2022-06-18 11:58] VITALS: BP 168/90
--- NOTE | 2022-06-18 14:39 | ED Physician Documentation ---
History of Present Illness - Stated complaint Stated Complaint: RT KNEE PX - Chief complaint Chief Complaint: Ext Problem - History obtained from History obtained from: Patient - History of Present Illness Timing: How many days ago (several days) Pain level max: 8 Pain level now: 6 - Additonal information Additional information: Patient is a 36-year-old male who presents to the emergency department right knee pain for the past several days. Has a history of an ACL, PCL repair and meniscus repair x2 on the right knee. He states he has had increased popping, swelling and pain with ambulation. Does not recall any specific injury. Worse with walking, better with rest. [place] him until Friday, but if he comes to the ER then they could likely see him as an ER follow-up on or Friday. No fevers. No chills. No redness. Review of Systems Constitutional: denies: Fever, Chills GI: denies: Vomiting Skin: denies: Rash Neurologic: denies: Headache PD PAST MEDICAL HISTORY - Past Medical History Cardiovascular: None Respiratory: None Neuro: None Endocrine/Autoimmune: None GI: None : None HEENT: None Psych: Depression Musculoskeletal: Other Derm: None - Past Surgical History Past Surgical History: Yes Ortho: Other HEENT: Other - Present Medications Home Medications: Ambulatory Orders Medication Instructions Recorded Confirmed Citalopram Hydrobromide [Celexa] 20 mg PO DAILY 05/14/21 06/18/22 Oxycodone HCl/Acetaminophen 1 - 2 each PO Q6H PRN #14 tablet 06/18/22 [Percocet 5-325 mg Tablet] MDD 6 tabs - Allergies Allergies/Adverse Reactions: Allergies Allergy/AdvReac Type Severity Reaction Status Date / Time No Known Drug Allergies Allergy Verified 06/18/22 11:58 - Social History Does the pt smoke?: No Smoking Status: Never smoker Does the pt drink ETOH?: Yes Does the pt have substance abuse?: No - Immunizations Immunizations are current?: Yes - POLST Patient has POLST: No PD ED PE NORMAL - Vitals Vital signs reviewed: Yes - General General: Alert and oriented X 3, No acute distress - Derm Derm: Warm and dry - Extremities Extremities: Other (Mild effusion of the right knee. Patient has very limited range of motion of the right knee at baseline since his surgery. Unable to tolerate meniscus testing. Neurovascularly intact. No skin changes. No bony tenderness.) - Neuro Neuro: Alert and oriented X 3 Results - Vitals Vitals: Vital Signs - 24 hr 06/18/22 11:54 Temperature 36.3 C L Heart Rate 95 Respiratory 14 Rate Blood Pressure 168/90 H O2 Saturation 100 Oxygen O2 Source Room air PD MEDICAL DECISION MAKING - ED course Complexity details: considered differential, d/w patient ED course: Patient with mild right knee effusion, has very limited range of motion in the right knee secondary to a prior surgery. No indication for emergent imaging. We will have him be nonweightbearing on crutches. Will place on pain medication for home and have him follow-up with his PCM later this week for repeat e valuation. Patient counseled regarding signs and symptoms for which I believe and urgent re-evaluation would be necessary. Patient with good understanding of and agreement to plan and is comfortable going home at this time This document was made in part using voice recognition software. While efforts are made to proofread this document, sound alike and grammatical errors may occur. Departure - Departure Disposition: 01 Home, Self Care Clinical Impression: Knee effusion, right Condition: Good Instructions: ED Effusion Knee Follow-Up: your,doctor on Friday [Other] Prescriptions: Oxycodone HCl/Acetaminophen [Percocet 5-325 mg Tablet] 1 - 2 each PO Q6H PRN #14 tablet MDD 6 tabs PRN Reason: pain Comments: Your prescriptions were sent to [facility] in [place]. Please follow-up with your doctor for further care. Please limit weightbearing on the right knee as bearing weight will likely increase the swelling. Continue to use your crutches. I am prescribing a short course of narcotic pain medication for you. These are potentially dangerous and addictive medications that should be used carefully. These medications may constipate you. Take an jlht-jfp-[id number] stool softener (docusate) twice daily with plenty of water while taking these medications. If you go 24 hours without a bowel movement, take iytl-[id number]-[id number] miralax, per package instructions. Do not drink or drive while taking these medications. If you received narcotic or sedating medications while in the emergency department, do not drive for 24 hours. Store this medication in a safe, secure place and out of reach of children. It is a violation of federal law to give or sell this medication to another person or to use in a manner other than prescribed. The ED will not refill narcotic prescriptions, including prescriptions lost or stolen. To dispose of unwanted medications: 1. [facility] at [address] in [place] has a medication drop box. They accept prescription medications (in pill form) Friday through Friday 9:00 a.m. to 5:00 p.m. 2. The [facility] accepts prescription medications (in pill form only) for disposal year round. Call for more information. 3. Contact the [facility] for the next [employer] sponsored prescription drug collection event. , [phone], or [phone];
== END 2022-06-18 14:48 | disposition home or self-care (01) ==
LOC: ED 11:50
DX: M25.461 Effusion, right knee (principal)
CPT/HCPCS: 99282; 99283

== ENCOUNTER 2022-07-12 12:44 | Outpatient (CLI) | payer OTHER ==
--- NOTE | 2022-07-12 20:16 | MRI Report ---
PROCEDURE: KNEE WO - RT INDICATIONS: RIGHT KNEE PAIN TECHNIQUE: Noncontrast sagittal STIR, PD fast spin echo and T2 fast spin echo with fat saturation, sagittal 3-D spoiled GE with fat saturation; coronal T1 spin echo and STIR, and axial STIR and PD fast spin echo w ith fat saturation through the knee. COMPARISON: None. FINDINGS: Image quality: Excellent. Anterior cruciate ligament: Postsurgical changes are seen from prior anterior cruciate ligament recon struction. The femoral tunnel is located at the 10-11 o'clock position in the intercondylar notch wit h the orifice approximately 6 mm from the intersection of the posterior femoral cortex with Blumensaa t's line. The tibial tunnel is located in the anterior to middle thirds of the central tibial plateau . There is mild anterior translation of the tibia relative to the distal femur and the roof of the in tercondylar notch impinges upon the graft fibers. The anterior cruciate ligament graft appears attenu ated with increased signal intensity. Some of the graft fibers appear to remain in continuity. Cystic changes are seen within the tibial tunnel. There is no significant arthrofibrosis. Posterior cruciate ligament: Intact. Medial collateral ligament: Intact. Lateral collateral ligament: Postsurgical changes from lateral collateral ligament reconstruction. T he ligament graft appears intact. Medial meniscus: Intact. Lateral meniscus: The posterior horn and body of the lateral meniscus appear diminutive, which may b e secondary to prior postsurgical changes versus chronic degenerative tearing and maceration. Medial and lateral tendons: The semimembranosus tendon insertions appear intact. Visualized portion s of the pes anserinus tendons appear normal. Postsurgical changes are seen from lateral reconstruct ion with a ligament graft from the fibular head to the lateral tibial plateau. The ligament graft pelon ears to be intact. The popliteus tendon appears intact. Iliotibial band appears normal. Anterior structures: Postsurgical changes are seen along the patellar tendon with metal artifact at t he patella and tibial tubercle, possibly from prior royg-xcfpul-apep graft donor site. No high-grade patellar tendon tear. Distal quadriceps tendon is intact. No patellar subluxation. No femoral trochle ar dysplasia or ventral trochlear prominence. Mild scarring in the infrapatellar fat pad. Bones: No acute trabecular bone injury or fracture. Medial femorotibial cartilage: Moderate partial-thickness cartilage thinning is seen throughout the weightbearing portion of the medial femorotibial compartment. Lateral femorotibial cartilage: Full-thickness cartilage loss is seen in the central to posterior we ightbearing portion of the lateral femoral condyle and lateral tibial plateau. Patellofemoral cartilage: Deep cartilage fissuring is seen in the trochlear groove with background m ild partial thickness cartilage irregularity in the anterior compartment. Soft tissues: There is a small joint effusion. There is a small medial popliteal cyst. The musculat ure surrounding the knee is normal in bulk. IMPRESSION: 1.Postsurgical changes from anterior cruciate ligament reconstruction with tunnel positioning as desc ribed in the body report. Mild anterior translation of the tibia seen relative to the distal femur in the report the intercondylar notch impinges upon the anterior cruciate ligament graft. The graft pelon ears attenuated and may be partially torn. However, some of the graft fibers appear to remain in cont inuity. 2.Postsurgical changes from posterolateral corner reconstruction with intact ligament grafts. 3.Diminutive appearance of the posterior horn and body of the lateral meniscus may be secondary to pr ior partial meniscectomy and/or chronic degenerative tearing and maceration. 4.Large area of full-thickness cartilage loss throughout the central to posterior weightbearing porti on of the lateral femoral condyle. There is grade 2-3 cartilage thinning in the medial compartment an d deep cartilage fissuring in the anterior compartment. Tricompartmental marginal osteophytes are pre sent. 5.Small joint effusion. Small medial popliteal cyst. Reviewed by: Sai Monae MD on 07/12/2022 8:14 PM PST Approved by: Sai Monae MD on 07/12/2022 8:14 PM PST Station ID: [id number]
== END 2022-07-12 12:45 | disposition home or self-care (01) ==
LOC: DI 12:44
PROVIDERS: ATTEND Family Medicine
DX: M23.91 Unspecified internal derangement of right knee (principal); M25.461 Effusion, right knee; M71.21 Synovial cyst of popliteal space [Baker], right knee

== ENCOUNTER 2022-12-19 17:30 | Outpatient (CLI) | payer OTHER ==
--- NOTE | 2022-12-20 09:26 | MRI Report ---
PROCEDURE: LUMBAR SPINE WO INDICATIONS: LUMBAR RADICULOPATHY TECHNIQUE: Noncontrast sagittal T1 spin echo and T2 fast echo, sagittal STIR, axial T1 and T2 fast spin echo thr ough the lumbar spine. In cases with scoliosis, additional coronal T2 fast spin echo may be performe d. COMPARISON: CT dated 05/14/2021 FINDINGS: Image quality: Excellent. Alignment and Curvature: 5 lumbar type vertebral bodies are present by CT. There is loss of normal ewa mbar lordosis. 3 mm of retrolisthesis of L3 on L4. 2 mm of retrolisthesis of L4 on L5 and L5 on S1. Bone Marrow: Marrow is of normal overall signal. No acute vertebral body compression fractures. Mo derate reactive signal within the endplates adjacent to the L4-L5 intervertebral disc. Mild reactive signal adjacent to the remaining lumbar and lower thoracic endplates. Spinal Cord: Conus medullaris terminates at the lower L1 level. Visualized cord demonstrates normal signal and size. Paraspinous Soft Tissues: No paravertebral masses. T12-L1: Normal in appearance. L1-L2: Normal in appearance. L2-L3: Mild disc desiccation. Mild facet and ligament flavum hypertrophy. Mild upper lipomatosis. Mild canal stenosis. No foraminal stenosis. L3-L4: Mild disc height loss and desiccation. Mild diffuse disc bulge. Mild facet and ligament flav um hypertrophy. Mild upper lipomatosis. Mild canal stenosis. Mild bilateral foraminal stenosis. L4-L5: Moderate disc height loss and desiccation. Moderate diffuse disc bulge with superimposed lef t far lateral protrusion. Mild facet and ligament flavum hypertrophy. Mild epidural lipomatosis. Mild canal stenosis. Mild bilateral foraminal stenosis. L5-S1: Moderate disc height loss and desiccation. Mild diffuse disc bulge. Mild facet and ligament flavum hypertrophy. Mild canal stenosis. Moderate bilateral foraminal stenosis. IMPRESSION: 1. Multilevel degenerative disc and facet disease, in addition to epidural lipomatosis and ligamentum flavum hypertrophy. 2. Mild multilevel canal stenoses. 3. Multilevel foraminal stenoses, worst at L5-S1 where there are moderate foraminal stenoses. Reviewed by: Shaunna Higginbotham MD on 12/20/2022 9:25 AM PDT Approved by: Shaunna Higginbotham MD on 12/20/2022 9:25 AM PDT Station ID: [id number]
== END 2022-12-19 17:31 | disposition home or self-care (01) ==
LOC: DI 17:30
PROVIDERS: ATTEND Student in an Organized Health Care Education/Training Program
DX: M51.16 Intervertebral disc disorders with radiculopathy, lumbar region (principal); M48.061 Spinal stenosis, lumbar region without neurogenic claudication; M47.26 Other spondylosis with radiculopathy, lumbar region; M48.07 Spinal stenosis, lumbosacral region